=== PATIENT | male | born 1940 | race Caucasian/White ===

== ENCOUNTER → 2017-12-24 | Outpatient (CLI) | payer MEDICARE ==
[2017-12-24 17:03] LABS: Basophils % (A) 1 %; Eosinophils # (A) 0.5 k/uL (0-0.7); Eosinophils % (A) 6 %; HCT 42.6 % (39.0-53.0); HGB 14.3 gm/dL (13.0-17.5); Lymphocytes # (A) 1.7 k/uL (1.0-4.8); Lymphocytes % (A) 23 %; MCH 31.7 pg (25.0-35.0); MCHC 33.6 g/dL (31.0-37.0); MCV 94.1 fL (80.0-100.0); Mean Platelet Volume 6.5; Monocytes # (A) 0.3 k/uL (0-1.0); Monocytes % (A) 5 %; Neutrophils # (A) 4.6 k/uL (1.3-7.7); Neutrophils % (A) 64 %; Platelet Count 245 k/uL (150-450); RBC 4.52 m/uL (4.30-5.90); RDW 12.5 % (11.5-15.5); WBC 7.3 k/uL (3.8-10.6)
[2017-12-24 17:08] LABS: Partial Thromboplastin Time 24.7 sec (22.0-30.0); Prothrombin Time 10.1 sec (9.0-12.0)
[2017-12-24 17:16] LABS: Calcium 9.5 mg/dL (8.4-10.2); Total Bilirubin 0.7 mg/dL (0.2-1.3); Total Protein 6.6 g/dL (6.3-8.2)
[2017-12-24 17:33] LABS: T4, Free (Free Thyroxine) 0.84 ng/dL (0.78-2.19)
[2017-12-24 17:49] LABS: Erythrocyte Sedimentation Rate 8 mm/hr (0-15)
[2017-12-25 00:46] LABS: Vitamin D 25 Hydroxy 58.6 ng/mL (30.0-100.0)
== END | disposition home or self-care (01) ==
LOC: LABWHC1 16:16
PROVIDERS: ATTEND Psychiatry & Neurology Neurology
DX: Z00.00 Encounter for general adult medical examination without abnormal findings (principal); R41.3 Other amnesia
CPT/HCPCS: 36415; 80053; 82306; 82607; 82747; 84439; 84443; 85025; 85610; 85652; 85730; 86038; 86618

== ENCOUNTER → 2018-01-03 | Outpatient (CLI) | payer MEDICARE ==
--- NOTE | 2018-01-03 22:30 | MR ---
EXAMINATION TYPE: MR brain wo con DATE OF EXAM: 01/03/2018 COMPARISON: NONE HISTORY: 77-year-old male Memory loss, cognitive dysfunction TECHNIQUE: Multiplanar, multisequence images of the brain and brainstem were acquired without IV con trast. Diffusion weighted imaging is performed. FINDINGS: No evidence for acute infarction, hemorrhage, mass, mass effect, midline shift, herniation, effacemen t of basal cisterns, or extra-axial fluid collection. There is mild to moderate generalized supratentorial volume loss with secondary mild prominence to th e ventricular system. Major intracranial flow voids are intact. T2/FLAIR weighted sequences show moderate to severe scattered burden of white matter change in the johnson bcortical, deep, and periventricular regions of both cerebral hemispheres. Midline structures demonstrate normal morphology. The craniocervical junction is normal. Mild mucosal thickening within the maxillary and frontal sinuses with a couple small polyps in the bi lateral maxillary sinuses and moderate mucosal thickening in the ethmoid air cells. Globes are intact . IMPRESSION: 1. No acute intracranial abnormality seen. 2. Mild to moderate atrophy and secondary mild ex vacuo ventriculomegaly. 3. Moderate to severe scattered burden of T2 bright white matter change likely relating to chronic sm all vessel ischemic disease. 4. 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
== END | disposition home or self-care (01) ==
LOC: RADMRIMAIN 17:14
PROVIDERS: ATTEND Psychiatry & Neurology Neurology
DX: G31.9 Degenerative disease of nervous system, unspecified (principal); R90.82 White matter disease, unspecified; G93.89 Other specified disorders of brain
CPT/HCPCS: 70551

== ENCOUNTER → 2018-02-03 | Outpatient (CLI) | payer MEDICARE | END | disposition home or self-care (01) | LOC: LABWHC1 11:29 | PROVIDERS: ATTEND Psychiatry & Neurology Neurology | DX: Z53.9 Procedure and treatment not carried out, unspecified reason (principal) ==

== ENCOUNTER → 2018-02-17 | Outpatient (CLI) | payer MEDICARE ==
--- NOTE | 2018-02-18 07:27 | USB ---
Reason for exam: clinical finding. History: Family history of breast cancer in mother at age 70. Physical Findings: Nurse Summary: Patient complains of left breast increased in size x 1 year (nurse mj). US Breast BILAT Right limited breast ultrasound including focal area of concern, retroareolar and axilla demonstrates no cystic or solid lesion seen. Left limited breast ultrasound including focal area of concern, retroareolar and axilla demonstrates no cystic or solid lesion seen. Scanning of the bilateral periareolar and subareolar regions. By ultrasound, no solid or cystic lesion is seen. These results were verbally communicated with the patient and result sheet given to the patient on 02/17/18. ASSESSMENT: Incomplete: need additional imaging evaluation, BI-RAD 0 RECOMMENDATION: Special view mammogram of both breasts. (for assessment of gynecomastia)
--- NOTE | 2018-02-18 07:29 | MM ---
Reason for exam: additional evaluation requested from abnormal screening. History: Family history of breast cancer in mother at age 70. MG Diagnostic Mammo w CAD SRIKANTH Bilateral CC and MLO view(s) were taken. There are scattered fibroglandular densities. Mild bilateral symmetrical gynecomastia with overall very slightly larger overall left breast tissues. No significant mass, calcification or other abnormality seen. These results were verbally communicated with the patient and result sheet given to the patient on 02/17/18. ASSESSMENT: Benign, BI-RAD 2 RECOMMENDATION: Clinical management of both breasts. Manage on a clinical basis with regard to mild bilateral gynecomastia.
== END | disposition home or self-care (01) ==
LOC: RADUSWWP 14:07
PROVIDERS: ATTEND Family Medicine
DX: N62 Hypertrophy of breast (principal)
CPT/HCPCS: 77066